=== PATIENT | male | born 1945 | race Caucasian/White ===

== ENCOUNTER 2016-10-17 06:49 | Day surgery (SDC) | payer OTHER ==
--- NOTE | ~2016-10-17 | EGD ---
EGD REPORT [facility] [address] [address] NAME: ALEX WILHELM : [birth year] STATUS : REG [facility]#: [id number] AGE: 71 ADM/REG DATE : 10/17/16 MR#: [id number] REPORT SERV DATE: 10/17/16 DICTATED BY: CARSON SALAZAR DATE: 10/17/16 REPORT STATUS : Draft TRANSCRIBED BY: [employer] DATE: 10/17/16 [facility] Center Patient Name: Alex Wilhelm Date of : 1945 Attending MD: CARSON SALAZAR MD Procedure Date No Time: 10/17/2016 Procedure: Colonoscopy Indications: High risk colon cancer surveillance: Personal history of colonic polyps Referring MD: BRISA HAIDER Medicines: as per anesthesia Complications: No immediate complications. Procedure: Pre-Anesthesia Assessment: - ASA Grade Assessment: II - A patient with mild systemic disease. After I obtained informed consent, the scope was passed under direct vision. Throughout the procedure, the patient's blood pressure, pulse, and oxygen saturations were monitored continuously. The PCF [id number] was introduced through the anus and advanced to the cecum, identified by appendiceal orifice and ileocecal valve. The colonoscopy was performed without difficulty. The patient tolerated the procedure. The quality of the bowel preparation was fair. Findings: The perianal and digital rectal examinations were normal. A sessile polyp was found in the cecum. The polyp was 6 mm in size. The polyp was removed with a jumbo cold forceps. Resection and retrieval were complete. A single small-mouthed diverticulum was found in the descending colon. Internal hemorrhoids were found during endoscopy and were mild. Impression: - One 6 mm polyp in the cecum. Resected and retrieved. - Diverticulosis in the descending colon. - Internal hemorrhoids. Recommendation: - Await pathology results. - Repeat colonoscopy for surveillance based on pathology results. Procedure Code(s): --- Professional --- 98553, Colonoscopy, flexible, proximal to splenic flexure; with biopsy, single or multiple EGD REPORT [facility] [address] [place]. [address] NAME: ALEX WILHELM : [birth year] STATUS : REG [facility]#: [id number] AGE: 71 ADM/REG DATE : 10/17/16 MR#: [id number] REPORT SERV DATE: 10/17/16 DICTATED BY: CARSON SALAZAR DATE: 10/17/16 REPORT STATUS : Draft TRANSCRIBED BY: [employer] DATE: 10/17/16 Diagnosis Code(s): --- Professional --- D12.0, Benign neoplasm of cecum K64.8, Other hemorrhoids K57.30, Diverticulosis of large intestine without perforation or abscess without bleeding Z86.010, Personal history of colonic polyps CPT copyright 2013 [employer]. All rights reserved. The codes documented in this report are preliminary and upon pre coder review may be revised to meet current compliance requirements. CARSON SALAZAR MD 10/17/2016 8:52 AM This report has been signed electronically. Number of Addenda: 0 Note Initiated On: 10/17/2016 8:17 AM Scope Withdrawal Time 0 hours 11 minutes 9 seconds [address] [place] [address]
[~2016-10-17 06:49] MED LIST: ASAB PO; EFFEX75 PO; VITC500 PO
== END 2016-10-17 23:59 | disposition home health service (06) ==
LOC: DMU 06:49
PROVIDERS: Internal Medicine Gastroenterology
PROC: 0DBH8ZX Excision of Cecum, Via Natural or Artificial Opening Endoscopic, Diagnostic (ICD-10-PCS; principal; 2016-10-17 08:00)
DX: D12.0 Benign neoplasm of cecum (principal); K64.8 Other hemorrhoids; K57.30 Diverticulosis of large intestine without perforation or abscess without bleeding; J45.909 Unspecified asthma, uncomplicated; F41.9 Anxiety disorder, unspecified; Z86.010 Personal history of colon polyps; Z88.8 Allergy status to other drugs, medicaments and biological substances; Z98.890 Other specified postprocedural states
CPT/HCPCS: 88305